=== PATIENT | female | born 2000 | race Caucasian/White ===

== ENCOUNTER 2023-09-21 22:12 | Emergency (ER) | payer BC, SELFPAY ==
[2023-09-21 22:13] VITALS: BP 153/107
[2023-09-21 23:09] VITALS: BP 115/77; BMI 24.2
--- NOTE | 2023-09-21 23:58 | ED.MUSCINJ ---
HPI-Injury
General
Chief Complaint: Musculo-Skeletal Complaint
Source: patient
Exam Limitations: none
Time Seen by Provider: 09/21/23 23:24
Travel History
Have you had any contact with someone who has COVID-19?: No
Do you have any symptoms of coronavirus? Fever > 100 degrees, chills, cough, shortness of breath, sore throat, loss of taste or smell, muscle aches, or headache?: No
History of Present Illness-Injury
Initial Injury comments:
23-year-old gdfs-[id number] female presents with right forearm laceration. States he fell and broke a mirror. No numbness or tingling to her hand. No other complaints at this time
Past History
Past History
ED Past Medical History: Psychiatric and Other (Migraine headaches)
Social History
Tobacco: Former smoker
Alcohol: None
Personal: Single
Living: with family
Employment: Student
Family History
Family History: Other
Phy Exam
Physical Exam
Physical Exam:
General: Well-appearing female no acute respiratory distress
Skin: 5 cm laceration through skin and subcutaneous tissue dorsal aspect proximal right forearm without muscle or tendon involvement.
She is neurovascular intact to the right hand. Full range of motion all fingers and wrist right hand
Injury Course
Orders/Labs/Results
Orders:
Orders
09/21/23 22:18
Forearm, Right 2 View [CR Forearm - Right 2 View] Urgent
Comment:
Reason For Exam: laceration R/O Foriegn body
Procedures
Laceration Closure
Right Dorsal Arm:
Status of Wound: clean
Description of Wound Edges: sharp
Preparation: cleaned with saline
Anesthesia: 1% Lidocaine
Revision/Debridement: routine- no revision
Wound exploration: explored to base- no FB
Type of Closure: layered closure, interrupted sutures and running stitch
Skin Closure Material: 5-0 prolene and 5-0 vicryl
Number of sutures: 20
MDM/Problems Addressed
Differential Diagnosis Includes:
Laceration right forearm. X-rays ordered through triage which were personally reviewed and there is no retained foreign body or bony involvement
*Critical Care Note
Total Time (30-74mins, 75-104mins- exclusive of procedures): Not Applicable
Update Note
Update Note:
Wound cleansed with saline and closed in a layered fashion using 5-0 Vicryl for the subcutaneous tissue and 5-0 Prolene for the skin
ED Attending Note
-
Portions of this chart may have been created with voice recognition software.� Occasional wrong word or��sound alike� substitutions may have occurred due to the inherent limitations of voice recognition software.
Discharge Plan
Departure
Patient Disposition: Home (Routine Discharge)
Date of Disposition: 09/22/23
Time of Disposition: 00:02
Patient with high blood pressure during this ER visit?: No
Discharge Problem:
Laceration
Instructions: Laceration Repair With Stitches (DC)
Prescriptions:
No Action
cefdinir 300 mg capsule
300 mg PO Q12H 10 Days Qty: 20 0RF
ibuprofen 600 mg tablet
600 mg PO Q8H PRN (Reason: pain) Qty: 14 0RF
Referrals:
UNKNOWN - PT DOES,NOT KNOW [Family Provider] -
Activity Restrictions/Additional Instructions:
Keep clean. Apply antibacterial and daily have sutures removed in 10 to 12 days.
Interventions
Interventions:
*Risk Screen - Suicide Last Done: 09/21/23 23:10
*General Assessment Last Done: 09/21/23 22:13
*Neglect/Abuse Screening Last Done: 09/21/23 22:13
ED- Fall Risk Assessment Last Done: 09/21/23 22:13
*ED COVID-19 Vaccine History Last Done: 09/21/23 22:13
ED-Musculoskeletal Assessment Last Done: 09/21/23 23:10
== END 2023-09-22 00:30 | disposition home or self-care (01) ==
LOC: EMR 22:12
PROVIDERS: EMERGENCY PHYSICIAN Emergency Medicine
DX: S51.811A Laceration without foreign body of right forearm, initial encounter (principal); W19.XXXA Unspecified fall, initial encounter; Z87.891 Personal history of nicotine dependence
CPT/HCPCS: 99283; 12032; 73090

== ENCOUNTER 2023-10-16 00:32 | Emergency (ER) | payer BC, SELFPAY ==
[2023-10-16 00:39] VITALS: BP 118/64
[2023-10-16 01:32] LABS: % Basophils 0.8 % (0-2); % Immature Granulocytes 0.3 % (0-0.5); % Lymphocytes 19.2 % (20.5-51.1); % Monocytes 4.9 % (1.7-9.3); % Neutrophils 72.8 % (42.2-75.2); Absolute Basophils 0.1 10^3/uL (0-0.2); Absolute Eosinophils 0.1 10^3/uL (0-0.7); Absolute Lymphocytes 1.4 10^3/uL (1.2-3.4); Absolute Monocytes 0.4 10^3/uL (0.1-0.6); Absolute Neutrophils 5.2 10^3/uL (1.4-6.5); Hematocrit 37.6 % (37.0-47.0); Hemoglobin 13.1 g/dL (12.0-16.0); Mean Corp Hgb Conc. 34.8 g/dL (33.0-37.0); Mean Corpuscular Hgb 32.4 pg (27.0-31.0); Mean Corpuscular Volume 93.1 fL (81.0-99.0); Mean Platelet Volume 9.6 fL (7.4-10.4); Nucleated Red Blood Cells % 0 %; Platelet Count 282 10^3/uL (130-400); Red Blood Cell Count 4.04 10^6/uL (4.20-5.40); Red Cell Dist. Width 13.3 % (11.5-14.5); White Blood Cell Count 7.1 10^3/uL (4.8-10.8)
--- NOTE | 2023-10-16 01:43 | ED.GENMED ---
History of Present Illness
<Earlene Curtis DO - Last Filed: 10/16/23 02:49>
General
Chief Complaint: Alcohol Problem
Source: patient, family (Mother and father at bedside) and ambulance crew
Time Seen by Provider: 10/16/23 00:35
Nursing documentation reviewed up to this point in time: agreed with
Travel History
Have you had any contact with someone who has COVID-19?: No
Do you have any symptoms of coronavirus? Fever > 100 degrees, chills, cough, shortness of breath, sore throat, loss of taste or smell, muscle aches, or headache?: No
History of Present Illness
History of Present Illness:
This is a 23-year-old female who resides at home with her parents. She has history of ADHD, anxiety, bipolar disorder, borderline personality disorder who admits to increased stress and anxiety over the past month or 2. She does follow with a
psychiatrist, maintained on Wellbutrin, Ativan, Vyvanse. She had been following with a counselor but not for the past few months.
According to parents patient has been much more anxious, agitated, volatile over the past week or 2 and tonight came home drunk. Patient admits to drinking vodka at a local bar and after returning home got into an argument with her parents and
admits to taking 3 Ativan tablets in an attempt to just calm down to go to sleep. She adamantly denies wanting to hurt herself, denies taking any other medications.
Parents called 911 and patient is brought to the ED by EMS.
She admits to alcohol consumption tonight and admits to increased alcohol consumption on a near daily basis over the past few weeks. No prior history of alcohol abuse nor alcohol withdrawal issues.
She denies drug use save for marijuana.
She denies risk of but reports undergoing elective AB 3 months ago.
She is working part-time but has missed several days of work over the past week or 2.
According to mom they are attempting to establish, patient has an appointment with a new counselor scheduled within the next day or 2 and mom has been attempting to establish with a new psychiatrist.
Tonight however, when patient returned home intoxicated, significantly agitated, parents feared for patient's safety.
Previous records reviewed.
Previous ED visit 1 month ago, September 21 where patient suffered a trip and fall breaking a mirror causing a laceration to her right forearm. According to ED record there was nothing to indicate intoxication, no acute psychiatric issues or
concerns and laceration did not appear self-inflicted.
Past History
<Earlene Curtis DO - Last Filed: 10/16/23 02:49>
Past History
ED Past Medical History: Psychiatric and Other (Migraine headaches)
ED Past Surgical History: Other (Breast augmentation)
Social History
Tobacco: Former smoker
Alcohol: Occasional
Drug: Marijuana
Personal: Single
Living: with family
Employment: Employed
Family History
Family History: Other (Noncontributory)
Phy Exam
<Earlene Curtis DO - Last Filed: 10/16/23 02:49>
Physical Exam
Physical Exam:
GENERAL: 23-year-old female appears her stated age, awake and alert, appears moderately intoxicated. Intermittently tearful, intermittently agitated but able to be verbally redirected. Labile emotions. Denies suicidal thoughts or plan.
EYE: pupils equal and reactive. anicteric. The head is normocephalic, atraumatic.
NECK: Supple, nontender, no meningismus, no significant adenopathy.
ENT: posterior pharynx is clear, oral mucosa is moist. TM clear b/l, nares patent.
CARDIAC: Regular rate and rhythm. no murmur.
LUNGS: Clear breath sounds bilaterally, no acute respiratory distress, no wheezes/rales/rhonchi
ABDOMEN: Soft, nondistended, without focal tenderness, no r/g, no cvat. normoactive BS.
NEUROLOGICAL: Alert and oriented x3, appears moderately intoxicated, no focal neuro deficits. Mildly unsteady gait.
SKIN: Warm and dry, normal color, skin intact. No rash.
MUSCULOSKELETAL: No C/C/E. peripheral pulses are full and equal b/l. No palpable tenderness.
PSYCH: Intoxicated. Labile emotions. Admits to increased stress, anxiety over the past several months, admits to self-medicating with alcohol and Ativan. Denies suicidal thoughts or plan.
<Jimenez Chacon, DO - Last Filed: 10/16/23 05:44>
Withdrawal Assessment of Alcohol
Withdrawal Assessment Completed?: No
Course
<Earlene Curtis, DO - Last Filed: 10/16/23 02:49>
Orders/Labs/Results
Orders:
Orders
10/16/23 01:15
one to one [ED Special Safety Observation] ONCE
Observation level: One to One
Test Result ONCE
10/16/23 01:16
Crisis Consult Urgent
Reason for Consult: escalation of depression x few weeks
Comment: currently intoxicated
10/16/23 01:20
Alcohol Urgent
Complete Blood Count/With Diff Urgent
Comprehensive Metabolic Panel Urgent
Fentanyl, Urine Urgent
HCG, Serum Qualitative Screen Urgent
Urine Drug Abuse Screen Urgent
Date Specimen was Collected: 10/16/23
Time Specimen was Collected: 01:19
10/16/23 02:46
Restraints - Violent As Directed
Restraint Type-: Locked-4 point/4 rails
Apply From (date): 10/16/23
Apply from (time): 02:46
Remove (date): 10/16/23
Remove (time): 06:46
10/16/23 02:48
Haloperidol Lactate [Haldol] 5 mg IM NOW STA
Lorazepam [Ativan] 2 mg IM NOW STA
10/16/23 02:49
Haloperidol Lactate [Haldol] 5 mg .ROUTE .STK-MED ONE
Abnormal Lab Results
10/16/23
01:20
RBC 4.04 L 10^6/uL
(4.20-5.40)
MCH 32.4 H pg
(27.0-31.0)
Lymphocytes % 19.2 L %
(20.5-51.1)
Sodium 147 H mmol/L
(135-145)
Chloride 115 H mmol/L
(98-107)
Carbon Dioxide 21 L mmol/L
(22-30)
Glucose 101 H mg/dl
(70-99)
U Benzodiazepines Scrn Positive H
(Negative)
U Marijuana (THC) Screen Positive H
(Negative)
10/16/23 01:20
10/16/23 01:20
Vital Signs
Initial and Last Documented VS:
Initial Vital Signs
Temp Pulse Resp BP Pulse Ox
98.0 F 110 22 118/64 96
10/16/23 00:39 10/16/23 00:39 10/16/23 00:39 10/16/23 00:39 10/16/23 00:39
Last Documented Vital Signs
Temp Pulse Resp BP Pulse Ox
98.0 F 110 22 118/64 96
10/16/23 00:39 10/16/23 00:39 10/16/23 00:39 10/16/23 00:39 10/16/23 00:39
<Jimenez Chacon, DO - Last Filed: 10/16/23 05:44>
Orders/Labs/Results
Orders:
Orders
10/16/23 01:15
one to one [ED Special Safety Observation] ONCE
Observation level: One to One
Test Result ONCE
10/16/23 01:16
Crisis Consult Urgent
Reason for Consult: escalation of depression x few weeks
Comment: currently intoxicated
10/16/23 01:20
Alcohol Urgent
Complete Blood Count/With Diff Urgent
Comprehensive Metabolic Panel Urgent
Fentanyl, Urine Urgent
HCG, Serum Qualitative Screen Urgent
Urine Drug Abuse Screen Urgent
Date Specimen was Collected: 10/16/23
Time Specimen was Collected: 01:19
10/16/23 02:46
Restraints - Violent As Directed
Restraint Type-: Locked-4 point/4 rails
Apply From (date): 10/16/23
Apply from (time): 02:46
Remove (date): 10/16/23
Remove (time): 06:46
10/16/23 02:48
Haloperidol Lactate [Haldol] 5 mg IM NOW STA
Lorazepam [Ativan] 2 mg IM NOW STA
10/16/23 02:49
Haloperidol Lactate [Haldol] 5 mg .ROUTE .STK-MED ONE
Abnormal Lab Results
10/16/23
01:20
RBC 4.04 L 10^6/uL
(4.20-5.40)
MCH 32.4 H pg
(27.0-31.0)
Lymphocytes % 19.2 L %
(20.5-51.1)
Sodium 147 H mmol/L
(135-145)
Chloride 115 H mmol/L
(98-107)
Carbon Dioxide 21 L mmol/L
(22-30)
Glucose 101 H mg/dl
(70-99)
U Benzodiazepines Scrn Positive H
(Negative)
U Marijuana (THC) Screen Positive H
(Negative)
10/16/23 01:20
10/16/23 01:20
Vital Signs
Initial and Last Documented VS:
Initial Vital Signs
Temp Pulse Resp BP Pulse Ox
98.0 F 110 22 118/64 96
03/19/24 00:39 10/16/23 00:39 10/16/23 00:39 10/16/23 00:39 10/16/23 00:39
Last Documented Vital Signs
Temp Pulse Resp BP Pulse Ox
98.0 F 110 22 118/64 96
10/16/23 00:39 10/16/23 00:39 10/16/23 00:39 10/16/23 00:39 10/16/23 00:39
<Earlene Curtis DO - Last Filed: 10/16/23 02:49>
MDM/Problems Addressed
Differential Diagnosis Includes:
23-year-old female with history of anxiety, depression, ADHD and according to mother history of bipolar disorder, borderline personality disorder presents intoxicated, agitated, labile emotions.
She admits to increased anxiety and stress over the past several weeks to months, admits to self-medicating with alcohol along with her Ativan, THC.
Parents are concerned with patient's progressive agitation, frequent outbursts, but much more so over the past week or 2.
Patient continues to deny suicidal thoughts nor plan, at this point no definitive indication for involuntary commitment.
She is agreeable to remain in the ED until sober and will plan for crisis evaluation once sober.
With report of increased alcohol consumption will check labs, assess for elevated LFTs, electrolyte abnormality. Will check UDS and alcohol level. hCG.
Patient noted to be frequently get out of bed and walk about exam room with somewhat unsteady gait but she had no falls.
As such, for patient's safety she will be placed on one-to-one observation.
Thus far she remains redirectable with verbal reassurance and cueing and has not required physical restraints nor sedating medications.
Chronic conditions affecting care: Psychiatric illness
Acute Exacerbation and/or Progression of Chronic Illness: Psychiatric illness
<Earlene Curtis DO - Last Filed: 10/16/23 02:49>
*Pulse Oximetry
Patient hypoxic: no
*Critical Care Note
Total Time (30-74mins, 75-104mins- exclusive of procedures): Not Applicable
<Earlene Curtis, DO - Last Filed: 10/16/23 02:49>
Update Note
Update Note:
10/16/2023212 AM
Patient continues with intermittent agitation, get herself worked up but is able to be verbally redirected.
Labs remarkable for significantly elevated alcohol level of 355 consistent with acute alcohol intoxication.
Mild hyponatremia and mild metabolic acidosis consistent with alcohol intoxication. LFTs within normal limits. hCG is negative.
UDS is positive for benzodiazepine and THC consistent with patient's history.
Will continue to observe in the ED and plan for crisis evaluation in the a.m.
10/16/2023246 AM
Unfortunately, after mom reentered exam room to give the patient crackers, patient became progressively more agitated, anxious, screaming, not redirectable, attempting to get up and walk about, attempted to kick at our nursing staff requiring 4
point restraints.
<Jimenez Chacon, DO - Last Filed: 10/16/23 05:44>
Update Note
Update Note:
10/16/2023212 AM
Patient continues with intermittent agitation, get herself worked up but is able to be verbally redirected.
Labs remarkable for significantly elevated alcohol level of 355 consistent with acute alcohol intoxication.
Mild hyponatremia and mild metabolic acidosis consistent with alcohol intoxication. LFTs within normal limits. hCG is negative.
UDS is positive for benzodiazepine and THC consistent with patient's history.
Will continue to observe in the ED and plan for crisis evaluation in the a.m.
10/16/20237 AM
Unfortunately, after mom reentered exam room to give the patient crackers, patient became progressively more agitated, anxious, screaming, not redirectable, attempting to get up and walk about, attempted to kick at our nursing staff requiring 4
point restraints.
3 AM, appears a bit more calm after given Haldol and Ativan
Plan of care is for sobriety and crisis evaluation in the morning
ED Attending Note
<Earlene uCrtis DO - Last Filed: 10/16/23 02:49>
-
Portions of this chart may have been created with voice recognition software.� Occasional wrong word or��sound alike� substitutions may have occurred due to the inherent limitations of voice recognition software.
Discharge Plan
Departure
Patient Disposition: [facility]
Date of Disposition: 10/16/23
Time of Disposition: 02:11
Condition: Fair
Discharge Problem:
Alcohol intoxication, Generalized anxiety disorder
Instructions: Anxiety, Adult (DC), Alcohol Use Disorder (DC)
Prescriptions:
No Action
cefdinir 300 mg capsule
300 mg PO Q12H 10 Days Qty: 20 0RF
ibuprofen 600 mg tablet
600 mg PO Q8H PRN (Reason: pain) Qty: 14 0RF
Referrals:
UNKNOWN - PT DOES,NOT KNOW [Family Provider] -
Interventions
Interventions:
*Risk Screen - Suicide Last Done: 10/16/23 00:39
*General Assessment Last Done: 10/16/23 00:39
*Neglect/Abuse Screening Last Done: 10/16/23 00:39
ED- Fall Risk Assessment Last Done: 10/16/23 01:27
*ED COVID-19 Vaccine History Last Done: 10/16/23 00:39
ED- Neurological Assessment Last Done: 10/16/23 01:27
ED-Psychological Assessment Last Done: 10/16/23 01:27
[2023-10-16 01:47] LABS: HCG, Serum Qualitative Screen Negative
[2023-10-16 01:50] LABS: Amphetamines Negative (Negative); Barbiturates Negative (Negative); Benzodiazepines Positive (Negative); Buprenorphine Negative (Negative); Cocaine Negative (Negative); Marijuana Positive (Negative); Methadone Negative (Negative); Methamphetamines Negative (Negative); Opiates Negative (Negative); Phencyclidine Negative (Negative); Tricyclic Antidepressants Negative (Negative)
[2023-10-16 01:55] LABS: ALT (SGPT) 17 U/L (0-35); AST (SGOT) 29 U/L (14-36); Albumin 4.9 g/dl (3.5-5.0); Alkaline Phosphatase 104 U/L (38-126); Blood Urea Nitrogen 8 mg/dl (7-17); Calcium 9.2 mg/dl (8.4-10.2); Carbon Dioxide 21 mmol/L (22-30); Chloride 115 mmol/L (98-107); Glucose 101 mg/dl (70-99); Potassium 3.6 mmol/L (3.5-5.1); Sodium 147 mmol/L (135-145); Total Bilirubin 0.2 mg/dl (0.2-1.3); Total Protein 7.9 g/dl (6.3-8.2); eGFR > 60.00
[2023-10-16 02:05] LABS: Fentanyl, Urine Negative (Negative)
[2023-10-16 02:09] LABS: Alcohol 355 mg/dl
--- NOTE | 2023-10-16 02:13 | EDRN ---
Patients dad came out into the hallway asking me about restraining the patient, asked him why because we don't normally just restrain people, father stating that his daughter is in and out of the bathroom and now sitting on floor, went in and spoke
with patient and had her get back into bed, charge nurse at bedside as well as Dr. Curtis, parents seem to be upsetting patient, parents asked to wait in waiting room for now and a 1:1 is at bedside with patient. Patient is emotional and speaking
with staff but is calming down with parents out of the room, tech will continue to sit with patient for safety reasons.
--- NOTE | 2023-10-16 02:24 | EDRN ---
Gave patient from petroleum jelly for her lips, she asked for ChapStick
--- NOTE | 2023-10-16 02:30 | EDRN ---
Patients mom came back to the room to give her goldfish and the patient started screaming and flipping out, mom was removed from the situation, tried to calm patient down, Charge nurse at bedside along with Dr. curtis and myself trying to calm patient
down, patient at this time starts cursing at staff and trying to hit and kick staff, several nurses at bedside safely helping patient back in to bed, at this time patient continues to curse at staff and continues to kick and try to hit staff.
Security is called at this time, Dr. Curtis orders medication to attempt to help patient to calm down. After much calming efforts as well as medication, patient is not calming down and is now becoming a safety concern for staff and herself. Decision
to place patient in four point restraints for safety. Dr. Curtis spoke with patients mother and informed her she can go home for a little bit and that patient was becoming very aggressive with staff and trying to hit staff and due to her escalating
behavior we needed to place patient in restraints for everyone's safety and will re-evaluate her progress.
[2023-10-16] MEDS: HALDOL 5 MG IM (02:51)
[2023-10-16] MEDS: ATIVAN 2 MG IM (02:55)
--- NOTE | 2023-10-16 05:15 | EDRN ---
Patient is sleeping and has been calm, will remove 2 of the restraints and work on getting patient completely out of them, 1:[address]
--- NOTE | 2023-10-16 06:42 | EDRN ---
Patient remains asleep all restraints removed at this time.
--- NOTE | 2023-10-16 07:03 | EDRN ---
Report to Tomy Naik
--- NOTE | 2023-10-16 08:10 | ED.CRISIS ---
ED Crisis Note
ED Crisis Note
Assessment/Plan:
Patient now awake and answering questions. I just spoke to the parents and told them that I will call crisis to have them come and try to speak to the patient. They are worried about her mental health and report that she has been 'on a low, in
bed' for about 2 weeks. I personally called crisis team to let them know that patient is now awake and answering questions and can be reassessed at this time
[2023-10-16 08:46] VITALS: BP 105/62
--- NOTE | 2023-10-16 10:33 | ED.CRISIS ---
ED Crisis Note
ED Crisis Note
Assessment/Plan:
Patient now awake and answering questions. I just spoke to the parents and told them that I will call crisis to have them come and try to speak to the patient. They are worried about her mental health and report that she has been 'on a low, in
bed' for about 2 weeks. I personally called crisis team to let them know that patient is now awake and answering questions and can be reassessed at this time
10:33 AM patient filed a 302 but it was not upheld. I spoke extensively to the nutrition worker as well as the patient and offered her any kind of help with mental health and/or substance abuse. The patient is fully awake and walking around steadily.
She is calm and cooperative, and alert and oriented x 3. She reports she does not want help. She denies suicidal and homicidal thoughts and reports that she will go home with her parents.
== END 2023-10-16 10:36 | disposition home or self-care (01) ==
LOC: EMR 00:32
PROVIDERS: Emergency Medicine; EMERGENCY PHYSICIAN Emergency Medicine
DX: F10.129 Alcohol abuse with intoxication, unspecified (principal); F41.9 Anxiety disorder, unspecified; F90.9 Attention-deficit hyperactivity disorder, unspecified type; F31.9 Bipolar disorder, unspecified; F60.3 Borderline personality disorder; Z87.891 Personal history of nicotine dependence
CPT/HCPCS: 99283; 96372; 80053; 80306; 80307; 82077; 84703; 85025